=== PATIENT | female | born 1995 | race Caucasian/White ===

== ENCOUNTER 2017-12-08 23:01 | Emergency (ER) | payer SELFPAY | END 2017-12-09 01:16 | disposition left against medical advice (07) | LOC: M ED 23:01 | DX: R10.9 Unspecified abdominal pain (principal); Z53.21 Procedure and treatment not carried out due to patient leaving prior to being seen by health care provider ==

== ENCOUNTER → 2018-12-29 | Outpatient (REF) | payer OTHER ==
[~2018-12-29] MED LIST: PROZ40CA PO; TRAZ-163 PO; TRIL1TAB PO
== END ==
LOC: M SFHCLERA 13:01
PROVIDERS: ATTEND Physician Assistant
DX: L03.316 Cellulitis of umbilicus (principal)

== ENCOUNTER → 2019-02-23 | Outpatient (CLI) | payer OTHER ==
[2019-02-23 14:17] LABS: HEMATOCRIT 42.9 % (36.0-47.0); HEMOGLOBIN 14.2 g/dl (12.0-15.5); MEAN CORPUSCULAR HEMOGLOBIN 28.8 pg (27.0-33.0); MEAN CORPUSCULAR HGB CONC 33.1 g/dl (32.0-36.5); PLATELET COUNT, AUTOMATED 298 10^3/uL (150-450); RED BLOOD COUNT 4.93 10^6/uL (4.00-5.40); WHITE BLOOD COUNT 8.8 10^3/uL (4.0-10.0)
[2019-02-23 14:28] LABS: HCG, SERUM QUALITATIVE NEGATIVE (NEGATIVE)
[2019-02-23 14:32] LABS: ALBUMIN 4.4 GM/DL (3.2-5.2); ALT/SGPT 27 U/L (12-78); BILIRUBIN,TOTAL 0.5 MG/DL (0.2-1.0); BLOOD UREA NITROGEN 15 MG/DL (7-18); CALCIUM LEVEL 9.7 MG/DL (8.5-10.1); CARBON DIOXIDE LEVEL 26 MEQ/L (21-32); CHLORIDE LEVEL 107 MEQ/L (98-107); CREATININE FOR GFR 0.62 MG/DL (0.55-1.30); FOLLICLE STIMULATING HORMONE 4.2 mIU/mL; FREE T4 1.02 NG/DL (0.76-1.46); GLOMERULAR FILTRATION RATE > 60.0 (>60); GLUCOSE, FASTING 88 MG/DL (70-100); LUTEINIZING HORMONE 6.7 mIU/mL; SODIUM LEVEL 140 MEQ/L (136-145); THYROID STIMULATING HORMONE 0.973 uIU/ML (0.358-3.740); TOTAL PROTEIN 7.2 GM/DL (6.4-8.2)
[2019-02-24 10:11] LABS: TESTOSTERONE FREE (DIRECT) 0.9 pg/mL (0.0-4.2)
== END ==
LOC: M SMT 09:29
PROVIDERS: ATTEND Advanced Practice Midwife
DX: E28.2 Polycystic ovarian syndrome (principal); N92.6 Irregular menstruation, unspecified

== ENCOUNTER → 2019-03-31 | Outpatient (CLI) | payer OTHER ==
--- NOTE | 2019-03-31 17:16 | REP ---
Clinical: Abdominal pain and constipation. Technique: Two supine views of the abdomen and pelvis. Findings: Moderate fecal stasis and presumed constipation is suggested. No obstruction or perforation. No organomegaly. Skeletal structures are intact. Impression: Findings suggest moderate fecal stasis and constipation. Electronically Signed by Geovani Alfred MD 03/31/2019 05:07 P
== END ==
LOC: M LRY 16:54
PROVIDERS: ATTEND Physician Assistant
DX: R10.9 Unspecified abdominal pain (principal)
CPT/HCPCS: 74018; 81002; 81025; G0463

== ENCOUNTER → 2019-04-09 | Outpatient (CLI) | payer OTHER ==
--- NOTE | 2019-04-09 16:46 | REP ---
AP lateral cervical spine three views History: Cevicalgia There is no acute fracture or subluxation. The intervertebral discs are normal in height. There is loss of the normal lordotic curve. Impression: There is no acute fracture or subluxation. Electronically Signed by Shon Diaz MD 04/09/2019 04:36 P
--- NOTE | 2019-04-09 18:32 | REP ---
Right shoulder series: Three views: History: Pain. Findings: The right glenohumeral and acromioclavicular joints are normally aligned. Periarticular soft tissues are unremarkable. No fracture or bony erosive change is seen. There is a mild gentle curvature in the mid thoracic spine. Incidental note is made of a small cervical rib on the right at C7. Impression: Small right-sided cervical rib noted. Mild thoracic curvature. Otherwise negative right shoulder radiographs. Electronically Signed by Alvin Veras MD 04/09/2019 06:37 P
== END ==
LOC: M WUC 16:16
PROVIDERS: ATTEND Physician Assistant
DX: M25.511 Pain in right shoulder (principal); M54.2 Cervicalgia

== ENCOUNTER → 2019-06-01 | Outpatient (REF) | payer OTHER ==
[2019-06-01 21:49] LABS: CHLAMYDIA DNA AMPLIFICATION NEGATIVE (NEGATIVE); GC DNA AMPLIFICATION NEGATIVE (NEGATIVE)
== END ==
LOC: M SFHCLERA 17:04
PROVIDERS: ATTEND Nurse Practitioner Family
DX: N89.8 Other specified noninflammatory disorders of vagina (principal)